=== PATIENT | female | born 1985 | race Caucasian/White ===

== ENCOUNTER 2022-11-08 17:28 | Emergency (ER) | payer OTHER ==
[2022-11-08 17:46] VITALS: BP 113/69
--- NOTE | 2022-11-08 17:48 | ED Physician Documentation ---
History of Present Illness - Stated complaint Stated Complaint: LIGHT HEADED/VOMITING - Chief complaint Chief Complaint: General - History obtained from History obtained from: Patient - Additonal information Additional information: 36-year-old female who is a G2, P1 and her 16-week presents with nausea and vomiting and lightheadedness. She has been struggling with nausea and vomiting throughout her and is on Zofran prescribed by her OB. She states that she feels she is a little dehydrated and is requesting IV fluids. She states she did call her OB in [facility] who advised her to come in for fluids. She has not had a fever, no abdominal pain, no diarrhea or constipation, no dysuria urgency or frequency, no vaginal bleeding. She has had a first trimester ultrasound and has otherwise been uncomplicated thus far. Patient is visiting from out of town, lives in [facility] and will return there later this week and has follow-up with her OB in about a week. Review of Systems Constitutional: reports: Reviewed and negative GI: reports: Nausea, Vomiting. denies: Abdominal Pain, Abdominal Swelling, Constipation, Diarrhea, Hematemesis, Bloody / black stool : reports: Now EGA, Reviewed and negative PD PAST MEDICAL HISTORY - Past Medical History Past Medical History: No - Present Medications Home Medications: Ambulatory Orders Medication Instructions Recorded Confirmed Hydroxychloroquine [Plaquenil] 200 mg PO DAILY 11/08/22 11/08/22 Promethazine [Phenergan] 25 mg PO Q6H PRN #10 tablet 11/08/22 Sertraline HCl 100 mg PO DAILY 11/08/22 11/08/22 cephALEXin [Keflex] 500 mg PO BID 5 Days #10 cap 11/08/22 - Allergies Allergies/Adverse Reactions: Allergies Allergy/AdvReac Type Severity Reaction Status Date / Time No Known Drug Allergies Allergy Verified 11/08/22 17:42 PD ED PE NORMAL - Vitals Vital signs reviewed: Yes - General General: Alert and oriented X 3, No acute distress, Well developed/nourished - HEENT HEENT: Atraumatic, Moist mucous membranes - Cardiac Cardiac: RRR, No murmur - Respiratory Respiratory: No respiratory distress, Clear bilaterally - Abdomen Abdomen: Normal bowel sounds, Soft, Non tender, Non distended Results - Vitals Vitals: Vital Signs - 24 hr 11/08/22 17:40 Temperature 36.6 C Heart Rate 94 Respiratory 20 Rate Blood Pressure 113/69 O2 Saturation 99 Oxygen O2 Source Room air - Labs Labs: Laboratory Tests 11/08/22 18:25 Urine Color YELLOW Urine Clarity CLEAR Urine pH 7.0 Ur Specific [place] 1.020 Urine Protein NEGATIVE Urine Glucose (UA) NEGATIVE Urine Ketones TRACE Urine Occult Blood NEGATIVE Urine Nitrite NEGATIVE Urine Bilirubin NEGATIVE Urine Urobilinogen 0.2 (NORMAL) Ur Leukocyte Esterase MODERATE H Urine RBC None Seen Urine WBC 11-25 H Ur Squamous Epith Cells MANY Squamous H Urine Bacteria Moderate H Ur Microscopic Review INDICATED Urine Culture Comments NOT INDICATED PD Medical Decision Making - ED course Complexity details: reviewed results, re-evaluated patient, considered differential, d/w patient, d/w family ED course: 36-year-old female presents with nausea and vomiting during . She has been dealing with this throughout her and it is no different than prior but she felt like she may be getting dehydrated and subtle little bit lightheaded which she has had intermittently throughout . She is well- appearing on physical exam, no reproducible abdominal pain, stable vital signs. We did obtain labs which are significant f Bacteria in the urine Though sample is contaminated with squamous epithelial cells, I will treat given she is not in . Otherwise stable and patient felt better with IV fluids and IV Zofran. She will continue supportive measures and p.o. Zofran at home for her nausea and vomiting during and she has been given a prescription for Keflex for the next 5 days. She should follow-up with her OB when she returns to [place]. Return precautions reviewed in detail with the patient. Departure - Departure Clinical Impression: Nausea and vomiting during prior to 22 weeks gestation, Asymptomatic bacteriuria during Condition: Good Instructions: ED Preg Morning Sickness Prescriptions: cephALEXin [Keflex] 500 mg PO BID 5 Days #10 cap Promethazine [Phenergan] 25 mg PO Q6H PRN #10 tablet PRN Reason: Nausea / Vomiting Forms: PCP List
[2022-11-08] MEDS ORDERED: SODIUM CHLORIDE 0.9% 1,000 ML IV STA (18:16)
[2022-11-08] MEDS ORDERED: ONDANSETRON 4 MG/2 ML VIAL IVP STA (18:26)
[2022-11-08 18:37] LABS: BILIRUBIN,URINE NEGATIVE (NEGATIVE); GLUCOSE, URINE (UA) NEGATIVE (NEGATIVE); KETONES,URINE (UA) TRACE mg/dL (NEGATIVE); LEUKOCYTE ESTERASE, URINE MODERATE (NEGATIVE); NITRITE,URINE NEGATIVE (NEGATIVE); OCCULT BLOOD,URINE NEGATIVE (NEGATIVE); PROTEIN,URINE NEGATIVE (NEGATIVE); UROBILINOGEN,URINE 0.2 (NORMAL) E.U./dL (NORMAL)
[2022-11-08 18:40] LABS: CLARITY,URINE CLEAR (CLEAR)
[2022-11-08 18:46] LABS: BACTERIA,URINE Moderate /HPF (None Seen); RBC,URINE None Seen /HPF (0-5); SQUAMOUS EPITHELIAL CELL,UR MANY Squamous (<= Few)
[2022-11-08 18:59] LABS: ALBUMIN 3.6 g/dL (3.2-5.5); ALBUMIN/GLOBULIN RATIO 1.1 (1.0-2.2); BILIRUBIN,TOTAL 0.3 mg/dL (0.2-1.0); CALCIUM 9.1 mg/dL (8.5-10.3); CREATININE 0.5 mg/dL (0.6-1.3); POTASSIUM 3.5 mmol/L (3.5-4.5); TOTAL PROTEIN 6.8 g/dL (6.4-8.9)
== END 2022-11-08 19:24 | disposition home or self-care (01) ==
LOC: ED 17:28
DX: O21.9 Vomiting of pregnancy, unspecified (principal); O99.891 Other specified diseases and conditions complicating pregnancy; R82.71 Bacteriuria; Z3A.16 16 weeks gestation of pregnancy
CPT/HCPCS: 36415; 80053; 81001; 81003; 83690; 87086; 96374; 99283